=== PATIENT | male | born 1990 | race Caucasian/White ===

== ENCOUNTER 2025-02-09 01:54 | Emergency (ER) | payer BC, SELFPAY ==
[2025-02-09] VITALS (13 sets, daily range): BP systolic 126–144; BP diastolic 73–99; PULSE 64–83; RESP 14–20; TEMP 36.3–36.7; O2SAT 96–100; BMI 41.5
--- NOTE | 2025-02-09 02:10 | RAD_ITS ---
PROCEDURE: MANDIBLE LESS THAN 4 VIEWS REASON FOR EXAM: JAW OUT OF PLACE TECHNIQUE: 6 view(s) of the mandible COMPARISON: None. FINDINGS: There appears to be anterior dislocation of the right and left mandibular condyles in relation to the temporomandibular fossae. No fracture identified. RAD/Mandible Less Than 4 Views IMPRESSION: There appears to be anterior dislocation of the right and left mandibular condy les in relation to the temporomandibular fossae. No fracture identified. Reading Location: [id number]
--- NOTE | 2025-02-09 02:39 | EDS_ITS ---
HPI History of Present Illness Chief Complaint: Dislocation Detail of Chief Complaint: Unable to close mouth after yawning Informant: patient Onset/Context/Timing Onset: Today and Hours Context: Sudden Onset Timing: Continuous Quality: Unable to close mouth after yawning Location: Jaw Current Severity: Moderate Maximum Severity: Severe Worsened by: Nothing Relieved by: Nothing Associated Symptoms Associated Symptoms: Unable to close mouth Narrative Narrative: Patient is a 35-year-old male who has not had any to eat or drink in 4 hours who presents because unable to close his mouth after yawning. He believes he dislocated his jaw. He has no prior history of complete dislocation. He states its at times felt like it popped out. He is able to swallow. He is able to talk. He has no other complaints. Prior similar symptoms: Yes Recent Illness/Hospitalization: No PFSH PFSH Medical History no medical history no medical history Allergy/AdvReac Type Severity Reaction Status Date / Time No Known Allergies Allergy Verified 02/09/25 01:58 Surgical History H/O wrist surgery Social History Smoking Status: Never smoker ROS ROS ED Constitutional Constitutional ED: Denies chills, fever(s), subjective or sweats ENT ENT ED: Reports other Details: HPI narrative ; Denies ear pain, rhinorrhea or sore throat Cardiovascular Cardiovascular: Denies chest pain, palpitations or racing heartbeat Respiratory/Chest Respiratory/Chest: Denies dyspnea or dyspnea on exertion Gastrointestinal Gastrointestinal: Denies nausea or vomiting Musculoskeletal Musculoskeletal: Denies neck pain Integumentary Denies rash Neurologic Neurologic: Denies headache(s) EXAM Physical Exam Const Vital Signs: 02/09/25 01:56 Temperature 97.3 F L Temperature Source Oral Pulse Rate 79 Respiratory Rate 18 Blood Pressure 129/73 H Blood Pressure Mean 91 Pulse Ox 98 Oxygen Delivery Method Room Air Positive well nourished and well developed Constitutional Narrative: Patient appears uncomfortable and appearance is consistent with bilateral dislocated mandibular condyles. General Appearance ED: well developed; Negative for pallor HEENT Reports moist mucous membranes HEENT Narrative: Unable to close his mouth. Abnormality and tenderness over the right and left TMJ joint. Eyes PERRL and EOMs intact bilaterally General Eye ED: Negative for pale conjunctiva or scleral icterus Neck no lymphadenopathy, supple and no JVD Neck Narrative: Trachea is midline. Resp normal respiratory effort and clear to auscultation bilaterally Cardio regular rate, regular rhythm, S1 normal heart sound, S2 normal heart sound and no murmurs Neuro oriented x3 and CN's II-XII intact bilaterally Sensorium / Orientation: alert Psych mental status grossly normal Skin no rashes or lesions noted, no wounds and skin turgor normal General Skin Exam: elasticity normal; Negative for jaundice or pallor MDM MDM MDM Narrative Medical decision making narrative: Was given for mandible surgery since I was a a patient performing the procedure. Based on history patient has findings consistent with dislocated jaw. Will obtain x-ray to confirm and rule out fracture or any other abnormality. Radiography Chest X-Ray - ED: Read by ED Physician (Multiple views of the mandible were obtained and reveals right and left anterior condylar dislocation.) Diagnostic Testing: Clinical Impression(s) from Imaging Studies Mandible X-Ray 02/09/25 02:10 IMPRESSION: There appears to be anterior dislocation of the right and left mandibular condyles in relation to the temporomandibular fossae. No fracture identified. Reading Location: [facility] Procedures Procedural Sedation 1 (Initial Baseline): Consent Signed: Yes Any Problems With Anesthesia: No Sedation medication: Propofol Dose: 3 Total Moderate Sedation Units: 100 Maliampati Score: Class II ASA Classification: E and I Comment:: Once patient achieved deep sedation the bilateral condylar dislocation was reduced successfully and easily with minimal amount of pressure. Discharge Plan Triage Chief Complaint: Dislocation ED Provider: Robb Velarde Dx/Rx/DC Orders Clinical Impression: Closed dislocation of mandible Instructions: ED Jaw Dislocation Referrals: Vickey Bryant MD [Med Staff - Active Staff] - 3-5 Days Print Language: Indian Disposition Disposition: Home, Self Care
[2025-02-09] MEDS: Propofol 200 MG/20 ML Vial IV BOLUS (03:14)
== END 2025-02-09 04:05 | disposition home or self-care (01) ==
PROVIDERS: Emergency Provider Emergency Medicine; Visit Provider Emergency Medicine
DX: S03.03XA Dislocation of jaw, bilateral, initial encounter (principal); X58.XXXA Exposure to other specified factors, initial encounter
CPT/HCPCS: 21480; 70100; 99283; A4216